=== PATIENT | male | born 1965 | race Caucasian/White ===

== ENCOUNTER 2017-07-27 10:50 | Inpatient (IN) | payer MEDICAID ==
[~2017-07-27] VITALS: Ht 180.3 cm; Wt 72.3 kg
[~2017-07-27 10:50] MED LIST: HYDR-565 PO
[2017-07-27 14:26] LABS: BASOPHILS # (AUTO) 0.1 X10'3 (0-0.2); BASOPHILS % (AUTO) 0.9 % (0-1); EOSINOPHILS # (AUTO) 0.3 X10'3 (0-0.9); EOSINOPHILS % (AUTO) 3.8 % (0-6); LYMPHOCYTES # (AUTO) 2.1 X10'3 (1.1-4.8); LYMPHOCYTES % (AUTO) 26.5 % (21-51); MEAN CORPUSCULAR HEMOGLOBIN 33.3 PG (27.0-31.0); MEAN CORPUSCULAR HGB CONC 34.9 % (33.0-36.5); MEAN CORPUSCULAR VOLUME 95.4 FL (78-98); MEAN PLATELET VOLUME 7.7 FL (7.4-10.4); MONOCYTES # (AUTO) 0.8 X10'3 (0-0.9); MONOCYTES % (AUTO) 10.2 % (2-12); NEUTROPHILS # (AUTO) 4.6 X10'3 (1.8-7.7); NEUTROPHILS % (AUTO) 58.6 % (42-75); PRE OP PLATELET COUNT 437 X10'3 (140-440); RED CELL DISTRIBUTION WIDTH 13.6 % (11.5-14.5)
[2017-07-27 14:40] LABS: ALBUMIN 4.2 G/DL (3.4-5.0); ALBUMIN/GLOBULIN RATIO 1.1 (1.1-1.5); ALKALINE PHOSPHATASE 101 IU/L (46-116); BLOOD UREA NITROGEN 13 MG/DL (7-18); BUN/CREATININE RATIO 11.9 (5.4-32.0); CALCIUM 9.1 MG/DL (8.5-10.1); CHLORIDE 103 MMOL/L (99-107); CREATININE 1.09 MG/DL (0.60-1.10); PRE OP ALT 73 U/L (30-65); PRE OP ANION GAP 16 (8-16); PRE OP AST 86 U/L (10-37); PRE OP BILIRUB, TOTAL 1.9 MG/DL (0.0-1.0); PRE OP GLUCOSE 104 MG/DL (70-104); PRE OP SODIUM 141 MMOL/L (135-145); TOTAL CARBON DIOXIDE 22.5 MMOL/L (24-32); eGFR 72 ML/MIN
[2017-07-27 14:42] LABS: PRE OP POTASSIUM 3.3 MMOL/L (3.4-5.1)
[2017-08-04] VITALS (17 sets, daily range): BP systolic 102–139; BP diastolic 64–85
[2017-08-04] MEDS ORDERED: ringers solution, lacted 1,000 ML IV SCH (05:00)
[2017-08-04] MEDS ORDERED: famotidine 20mg tablet PO ONE (05:30)
[2017-08-04] MEDS ORDERED: ceFAZolin inj. 2,000 MG in normal saline 100ml IV soln 100 ML IV ONE (05:30)
[2017-08-04] MEDS ORDERED: vancomycin inj 1,500 MG in normal saline 300ml IV soln IV ONE (05:30)
[2017-08-04] MEDS ORDERED: LIDOcaine 1% (10mg/ml) 2ml vial ONE (05:42)
[2017-08-04 06:31] LABS: ISTAT HGB 13.3 g/dl (14.0-18.0); ISTAT IONIZED CALCIUM 1.17 mmol/L (1.03-1.32); ISTAT K 3.2 mmol/L (3.5-5.1)
[2017-08-04] MEDS ORDERED: tranexamic acid inj. 720 MG in normal saline 100ml IV soln 92.8 ML IV ONE ×4 (08:10)
[2017-08-04] MEDS ORDERED: midazolam 2 mg/2 ml injection ONE (08:13)
[2017-08-04] MEDS ORDERED: fentaNYL /PF 50mcg/ml 5ml ampule ONE (08:16)
[2017-08-04] MEDS ORDERED: LIDOcaine 1% 30ml preserv. free vial ONE (08:21)
[2017-08-04] MEDS ORDERED: ROPIVAcaine 0.5% (5mg/ml) 30ml vial ONE ×2 (08:21→08:37)
[2017-08-04] MEDS ORDERED: ketorolac trometh. 30mg/ml inj. ONE (08:37)
[2017-08-04] MEDS ORDERED: vancomycin 1,000mg inj ONE (08:37)
[2017-08-04] MEDS ORDERED: sevoflurane 250ml liquid IH ONE (09:50)
[2017-08-04] MEDS ORDERED: ondansetron/PF 4mg/2ml inj ONE (10:20)
[2017-08-04] MEDS ORDERED: propofol inj 20 ML IV ONE (10:25)
[2017-08-04] MEDS ORDERED: dexamethasone sod phosphate 4mg/ml inj. ONE (10:25)
[2017-08-04] MEDS ORDERED: rocuronium 10mg/ml inj IV ONE (10:26)
[2017-08-04] MEDS ORDERED: ringers solution, lacted 1,000 ML IV ONE (10:40)
[2017-08-04] MEDS ORDERED: hydrALAZINE 20mg/ml inj. IV PRN (10:40)
[2017-08-04] MEDS ORDERED: labetalol 20mg/4ml (5mg/ml) syringe IV PRN (10:40)
[2017-08-04] MEDS ORDERED: meperidine/PF 50mg/ml syringe IV ONE (10:40)
[2017-08-04] MEDS ORDERED: morphine 4 MG/ML inj SYRINge IV PRN (10:40)
[2017-08-04] MEDS ORDERED: meperidine/PF 50mg/ml syringe IV PRN ×2 (10:40)
[2017-08-04] MEDS ORDERED: ondansetron/PF 4mg/2ml inj IV PRN ×2 (10:40→12:40)
[2017-08-04] MEDS: potassium cl 20mEq in 1/2 NS 1,000 ML IV SCH ×2 (12:36→20:40)
[2017-08-04] MEDS ORDERED: HYDROmorphone inj. 0.5 MG/0.5 ML DISP.SYRIN IV PRN ×2 (12:40)
[2017-08-04] MEDS ORDERED: bisacodyl 10mg suppository rectal RC PRN (12:40)
[2017-08-04] MEDS ORDERED: acetaminophen 325mg tablet PO PRN (12:40)
[2017-08-04] MEDS ORDERED: diphenhydrAMINE 25mg capsule PO PRN ×2 (12:40)
[2017-08-04] MEDS ORDERED: oxyCODONE IR 5mg (immed. release) tablet PO PRN (12:40)
[2017-08-04] MEDS ORDERED: magnesium hydroxide 30ml (MOM) UD suspension PO PRN (12:40)
[2017-08-04] MEDS: ceFAZolin 1GM/D5W- ADD-VANTAGE 50 ML IV SCH (15:35)
[2017-08-04] MEDS: ketorolac tromethamine 15mg/ml inj. IV SCH ×2 (15:36→19:36)
[2017-08-04] MEDS: gabapentin 300mg capsule PO SCH ×2 (15:36→20:39)
[2017-08-04] MEDS: acetaminophen 325mg tablet PO SCH ×2 (15:37→19:35)
[2017-08-04] MEDS ORDERED: tranexamic acid inj. 700 MG in normal saline 100ml IV soln 100 ML IV ONE (16:00)
[2017-08-04] MEDS ORDERED: potassium Cl 20 mEq SR tablet PO PRN ×2 (19:10)
[2017-08-04] MEDS ORDERED: magnesium 2GM in 50ml NS 50 ML IV PRN (19:10)
[2017-08-04] MEDS ORDERED: magnesium 4gm in 100ml NS 100 ML IV PRN (19:10)
[2017-08-04] MEDS ORDERED: magnesium Cl slow-release 64mg tablet PO PRN (19:10)
[2017-08-04] MEDS ORDERED: potassium Cl 40MEQ/NS 500ml 500 ML IV PRN ×2 (19:10)
[2017-08-04] MEDS: oxyCODONE IR 5mg (immed. release) tablet PO PRN (19:39)
[2017-08-04] MEDS: sennosides 8.6mg tablet PO SCH (20:39)
[2017-08-05] MEDS: ceFAZolin 1GM/D5W- ADD-VANTAGE 50 ML IV SCH (00:31)
[2017-08-05] MEDS: oxyCODONE IR 5mg (immed. release) tablet PO PRN ×6 (00:34→20:49)
[2017-08-05 02:00] VITALS: BP 100/65
[2017-08-05] MEDS: ketorolac tromethamine 15mg/ml inj. IV SCH ×2 (02:19→07:41)
[2017-08-05] MEDS: acetaminophen 325mg tablet PO SCH ×4 (02:19→20:50)
[2017-08-05] MEDS: potassium cl 20mEq in 1/2 NS 1,000 ML IV SCH ×3 (04:55→20:36)
[2017-08-05 05:19] LABS: BASOPHILS % (AUTO) 0.3 % (0-1); EOSINOPHILS # (AUTO) 0.2 X10'3 (0-0.9); EOSINOPHILS % (AUTO) 1.6 % (0-6); HEMATOCRIT 33.7 % (42.0-52.0); HEMOGLOBIN 11.3 g/dl (14.0-17.9); LYMPHOCYTES # (AUTO) 0.7 X10'3 (1.1-4.8); LYMPHOCYTES % (AUTO) 7.1 % (21-51); MEAN CORPUSCULAR HGB CONC 33.6 % (33.0-36.5); MEAN CORPUSCULAR VOLUME 98.2 FL (78-98); MEAN PLATELET VOLUME 7.5 FL (7.4-10.4); MONOCYTES # (AUTO) 0.9 X10'3 (0-0.9); MONOCYTES % (AUTO) 8.8 % (2-12); NEUTROPHILS # (AUTO) 8.5 X10'3 (1.8-7.7); NEUTROPHILS % (AUTO) 82.2 % (42-75); PLATELET COUNT 313 X10'3 (140-440); RED BLOOD COUNT 3.44 X10'6 (4.70-6.10); RED CELL DISTRIBUTION WIDTH 13.7 % (11.5-14.5); WHITE BLOOD COUNT 10.3 X10'3 (4.5-11.0)
[2017-08-05 05:55] LABS: ANION GAP 8 (8-16); CHLORIDE 104 MMOL/L (99-107); MAGNESIUM 1.5 MG/DL (1.5-2.4); SODIUM 136 MMOL/L (135-145); TOTAL CARBON DIOXIDE 24.2 MMOL/L (24-32)
[2017-08-05 06:00] VITALS: BP 99/65
[2017-08-05] MEDS: morphine 4 MG/ML inj SYRINge IV PRN ×3 (06:54→15:51)
[2017-08-05] MEDS: gabapentin 300mg capsule PO SCH ×3 (07:40→20:49)
[2017-08-05] MEDS: aspirin 325mg tablet PO SCH (07:40)
[2017-08-05 10:00] VITALS: BP 100/61
[2017-08-05] MEDS ORDERED: ASPI-1 PO (11:22)
[2017-08-05 14:00] VITALS: BP 99/59
[2017-08-05 18:00] VITALS: BP 96/62
[2017-08-05] MEDS ORDERED: oxyCODONE IR 5mg (immed. release) tablet PO PRN (18:15)
[2017-08-05] MEDS: celeCOXIB 100mg capsule PO SCH ×2 (20:00→20:49)
[2017-08-05] MEDS: sennosides 8.6mg tablet PO SCH (20:50)
[2017-08-05 22:00] VITALS: BP 93/61
[2017-08-06] MEDS: acetaminophen 325mg tablet PO SCH ×2 (01:02→07:39)
[2017-08-06] MEDS: oxyCODONE IR 5mg (immed. release) tablet PO PRN ×3 (01:03→12:35)
[2017-08-06] MEDS: potassium cl 20mEq in 1/2 NS 1,000 ML IV SCH (04:36)
[2017-08-06 06:02] LABS: BASOPHILS % (AUTO) 0.4 % (0-1); EOSINOPHILS # (AUTO) 0.1 X10'3 (0-0.9); EOSINOPHILS % (AUTO) 1.4 % (0-6); HEMATOCRIT 30.1 % (42.0-52.0); HEMOGLOBIN 10.3 g/dl (14.0-17.9); LYMPHOCYTES # (AUTO) 2.3 X10'3 (1.1-4.8); LYMPHOCYTES % (AUTO) 28.4 % (21-51); MEAN PLATELET VOLUME 7.6 FL (7.4-10.4); MONOCYTES # (AUTO) 0.7 X10'3 (0-0.9); MONOCYTES % (AUTO) 8.7 % (2-12); NEUTROPHILS % (AUTO) 61.1 % (42-75); PLATELET COUNT 268 X10'3 (140-440); RED BLOOD COUNT 3.11 X10'6 (4.70-6.10); RED CELL DISTRIBUTION WIDTH 13.8 % (11.5-14.5); WHITE BLOOD COUNT 8.3 X10'3 (4.5-11.0)
[2017-08-06 06:24] LABS: MAGNESIUM 1.7 MG/DL (1.5-2.4); POTASSIUM 3.5 MMOL/L (3.5-5.1)
[2017-08-06 07:12] VITALS: BP 100/64
[2017-08-06] MEDS: aspirin 325mg tablet PO SCH (07:39)
[2017-08-06] MEDS: celeCOXIB 100mg capsule PO SCH ×2 (07:39→08:00)
[2017-08-06] MEDS: gabapentin 300mg capsule PO SCH ×2 (07:39→12:35)
[2017-08-06 11:34] VITALS: BP 101/63
[2017-08-06] MEDS ORDERED: acetaminophen 325mg tablet PO PRN (12:40)
== END 2017-08-06 12:45 | disposition home or self-care (01) | DRG 315 ==
LOC: EDSTATUS 10:50 → PAS IN 08-04 05:28 → EDSTATUS 08-04 09:30 → ORTHO 4S 08-04 13:19
PROVIDERS: ADMIT Orthopaedic Surgery; ATTEND Orthopaedic Surgery
PROC: 05Q Upper Veins, Repair (ICD-10-PCS; 2017-08-04)
PROC: 0LS30ZZ Reposition Right Upper Arm Tendon, Open Approach (ICD-10-PCS; 2017-08-04)
PROC: 0RRJ00Z Replacement of Right Shoulder Joint with Reverse Ball and Socket Synthetic Substitute, Open Approach (ICD-10-PCS; principal; 2017-08-04 09:50)
DX: M19.111 Post-traumatic osteoarthritis, right shoulder (principal); S25.301 Unspecified injury of right innominate or subclavian vein; M00.9 Pyogenic arthritis, unspecified; M75.121 Complete rotator cuff tear or rupture of right shoulder, not specified as traumatic; D62 Acute posthemorrhagic anemia; Y92.234 Operating room of hospital as the place of occurrence of the external cause; Y83.8 Other surgical procedures as the cause of abnormal reaction of the patient, or of later complication, without mention of misadventure at the time of the procedure; Z79.82 Long term (current) use of aspirin; Y93.89 Activity, other specified; Y99.8 Other external cause status
CPT/HCPCS: 36415; 80047; 80051; 80053; 83735; 84132; 85025; 87070; 87075; 87176; 93005; 97110; 97116; 97161; 97530; A4565; A7000; J0690; J1100; J1885; J2250; J2270; J2405; J2704; J2795; J3010; J3370; J3490; J7030; J7120